=== PATIENT | male | born 1955 | race Caucasian/White ===

== ENCOUNTER 2020-01-17 08:20 | Inpatient (IN) | payer OTHER ==
[~2020-01-17] VITALS: Ht 177.8 cm; Wt 63.5 kg
[2020-01-17] VITALS (10 sets, daily range): BP systolic 103–155; BP diastolic 55–88
[2020-01-17 08:49] LABS: HEMATOCRIT 41.9 % (42.0-52.0); HEMOGLOBIN 13.6 gm/dL (14.0-18.0); MCH 27.4 pg (26.0-34.0); MCHC 32.5 g/dL (28.0-37.0); MCV 84.4 fL (80.0-100.0); PLATELET COUNT 396 thou/uL (150-400); RBC 4.97 mil/uL (4.50-6.00); RDW 12.6 % (10.5-14.5); WBC 23.9 thou/uL (4.0-11.0)
[2020-01-17 08:57] LABS: CALCIUM 8.6 mg/dL (8.5-10.1); CREATININE 1.2 mg/dL (0.7-1.3); POTASSIUM 4.2 mmol/L (3.5-5.1)
[2020-01-17 09:03] LABS: ALBUMIN 1.8 g/dL (3.4-5.0); TOTAL BILIRUBIN 0.3 mg/dL (<0.1-1.0); TOTAL PROTEIN 7.2 g/dL (6.4-8.2)
[2020-01-17 09:08] LABS: ABSOLUTE NEUTROPHILS 21.7 thou/uL (1.4-8.2)
[2020-01-17 09:09] LABS: PLATELET ESTIMATE NORMAL
[2020-01-17 09:21] LABS: URINE BILIRUBIN NEGATIVE (Negative); URINE BLOOD 1+ (Negative); URINE CLARITY CLEAR; URINE COLOR YELLOW; URINE GLUCOSE-RANDOM* 3+ (Negative); URINE KETONES TRACE (Negative); URINE LEUKOCYTES-REFLEX TRACE (Negative); URINE NITRITE-REFLEX NEGATIVE (Negative); URINE PROTEIN (DIPSTICK) NEGATIVE (Negative); URINE SPECIFIC GRAVITY <= 1.005 (1.005-1.035); URINE UROBILINOGEN 0.2 E.U./dl (0.2-1.0)
[2020-01-17 09:30] LABS: SQUAMOUS None Seen /LPF (0-3)
[2020-01-17 09:31] LABS: BACTERIA-REFLEX 1-9 Few /HPF (None Seen); CRYSTALS None Seen /LPF (None Seen); URINE RBC 3-10 Few /HPF (0-2)
[2020-01-17 09:32] LABS: CASTS None Seen /LPF (None Seen); WBC CLUMPS Few (None Seen)
[2020-01-17 09:59] LABS: BE(vivo) 1.8 mmol/L (-2 to +3); HCO3 27.1 mmol/L (22.0-26.0); PCO2 VENOUS 45.3 mmHg (41.0-51.0); PO2 VENOUS 20.4 mmHg (35.0-45.0)
[2020-01-17 12:11] LABS: MAGNESIUM 1.9 mg/dL (1.8-2.4); PHOSPHORUS 2.8 mg/dL (2.5-4.9)
--- NOTE | 2020-01-17 15:06 | NUR ---
PATIENT ARRIVED TO UNIT AT 1459. PATIENT TRANSFERRED TO ICU BED. PATIENT ON 10U OF INSULIN PER HOUR AND NS @ 200ML PER HOUR.,
[2020-01-17 17:12] LABS: ALBUMIN 1.6 g/dL (3.4-5.0); CALCIUM 8.3 mg/dL (8.5-10.1); PHOSPHORUS 2.5 mg/dL (2.5-4.9); POTASSIUM 3.3 mmol/L (3.5-5.1)
[2020-01-17 17:36] LABS: BE(vivo) 4.3 mmol/L (-2 to +3); HCO3 29.1 mmol/L (22.0-26.0); PCO2 44.4 mmHg (35.0-45.0); PO2 59.8 mmHg (80.0-100.0); pH 7.435 (7.360-7.450); sO2 91.6 % (92.0-98.0)
--- NOTE | 2020-01-17 18:55 | NUR ---
DR SAMAYOA WAS REQUESTING TRANSFER TO [facility] FOR UROLOGY COVERAGE. INFORMATION WAS SENT TO TRANSFER CENTER, THEY CALLED AND SAID THEY REFUSED PT TRANSFER. SPOKE WITH DR SAMAYOA, REQUEST SENT TO [facility] PER PHYSICIAN. [facility] CALLED, THEY SAID [facility] [place] REFUSED AND THAT [facility] HAS A VERY HIGH CENSUS AND THEY WOULD LIKE US TO REFER TO OTHER HOSPITALS BUT THEY WILL STILL CONSIDER PT. SPOKE WITH DR SAMAYOA, SHE IS OK WITH [facility], [facility] LONG UROLOGY COVERAGE IS AVAILABLE. REFERAL SENT TO [facility], AWAITING RESPONSE.
--- NOTE | 2020-01-17 19:20 | NUR ---
ASSESSMENTS AND INTERVENTIONS DOCCUMENTED. DR. MEDRANO ROUNDING ON PATIENT. FAMILY AT BEDSIDE. FAMILY UPDATED AND GIVEN ICU INFORMATION. PATIENT NEEDING TO TRANSFER TO HOSPITAL WITH UROLOGY. PATIENT BLADDER SCANNED AND RETAINING URINE DESPITE HAVING MULTIPLE URINE OUTPUT. PATIENT LETHARGIC AND TACHYPNEIC. BLOOD GLUCOSE CHECKED, PATIENT WAS 33. INSULIN GTT TURNED OFF AND DEXTROSE IV GIVEN. PATIENT RESPONSIVE AND BP WNL. PATIENT RRESTING BUT STILL DROWSY AT SHIFT CHANGE. ABX INITIATED AND ORDERS TO TRANSFER IN PLACE.
--- NOTE | 2020-01-17 21:14 | NUR ---
PT IS BEING TRANFERRED TO [facility] ICU ROOM 4065 D/T NOT HAVING UROLOGY SPECIALTY. TALKED TO TRANFER TEAM AND GAVE REPORT TO JERAD WHITE @2100. ARRANGING EMS TRANSFER AND PACKET AT THE MOMENT.
--- NOTE | 2020-01-17 21:42 | NUR ---
ATTEMPTED TO CALL HIS MOTHER NEXT OF KIN FOR UPDATE ON TRANSFER OF PT TO ANOTHER FACILITY BUT NO ANSWER. LEFT MESSAGE TO RETURN CALL.
--- NOTE | 2020-01-17 22:10 | NUR ---
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
--- NOTE | 2020-01-17 23:35 | H ---
[facility] [place] [address] HISTORY AND PHYSICAL Name: ALCIRA GUZMÁN Room #: 237-P [facility] IN M.R.#: [id number] Admission: 01/17/20 Attend Phys: Hallie Monte MD Discharge: 01/17/20 Date of : 59 Report #: [id number] THIS REPORT FOR: //name// CC: DINESH physician/PCP Hallie Monte DATE OF SERVICE: 01/17/2020 PRIMARY CARE PHYSICIAN: None. The patient has not seen a provider for last 4+ years. HISTORY OF PRESENT ILLNESS: The patient is a very pleasant, lean and thin, malnourished gentleman, 65 years old who appears older than his stated age. He informs me that for last 2 weeks, he has been having progressive weakness. He was diagnosed with diabetes 5 years ago here in this hospital; however, decided not to see a doctor and not to get insulin or any medications, so he has been completely off of medications and informs me that he smokes 1 pack per day and has done it for 16+ years. The patient informs me that besides weakness, he has also noticed left eye droopy and that has been going on for at least 2-3 years; however, he did not think that it was significant. Earlier, he had told the ER physician that this has been going on for several weeks, but to me he told me that it has been going on for 2-3 years. The patient denies any weakness or numbness of any part of the body, but just generalized weakness and he not be able to get up and walk around. He informs me that he has been basically bedbound for last 2 weeks and it got so bad that he finally decided to call the EMS and bring him over to the hospital. He denies any fever, shaking chills or night sweats. Denies any dysuria, hematuria, frequency or urgency of urination. The patient has had urgency and nocturia, but that has been going on for quite some time. The patient denies any associated nausea or vomiting or diarrhea. The patient does not have any cough or sputum production or chest pain or chest wall pain. The patient denies any fall or head injury in recent past. Denies any dizziness, lightheadedness, or syncopal episodes. PAST MEDICAL HISTORY: The patient was diagnosed 5 years ago; however, has been off of medications. The patient denied any other health problems that he is aware of. ALLERGIES: The patient has no known drug allergies. CURRENT MEDICATIONS: None. PAST SURGICAL HISTORY: The patient informs me that he has not had any surgery either. FAMILY HISTORY: Mother is alive and well and she is the emergency contact, her [facility] [address] [place] [address] HISTORY AND PHYSICAL Name: ALCIRA GUZMÁN Room #: 237-P [facility] IN M.R.#: [id number] Admission: 01/17/20 Attend Phys: Hallie Monte MD Discharge: 01/17/20 Date of : 59 Report #: [id number] name is Abena and the patient lives with her. Father and mother both smoked more than 1 pack per day and both had diabetes, high blood pressure, heart disease and stroke. The patient denies any family history of cancer. PERSONAL AND SOCIAL HISTORY: One pack per day tobacco and denies any alcohol use, denies any recreational drug use to me; however, to the ER physician, he had told that he has used methamphetamine in past. REVIEW OF SYSTEMS: Ten-point review of system was done and was positive for just generalized weakness all over the body and frequency and urgency of urination. 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 Left eye drooping was present for last 2-3 years as per the patient. We will call the mother and verify the history as well as the patient lives with his mother. The patient denies any pain. Review of systems for musculoskeletal is also negative. He absolutely denied any fever, shaking chills or night sweats at home, just generalized weakness and inability to get up and do his activities of daily living, progressively worsening for last 2 weeks was the main symptom, the patient came in with. PHYSICAL EXAMINATION: VITAL SIGNS: Temperature 38.2, heart rate 113, respirations 20, blood pressure 143/88, pulse oximetry 93% on room air when he presented to the ER this morning and at the time of examination, heart rate 109, temperature 38.2, respirations 21, blood pressure 155/77, pulse oximetry 95% on room air. GENERAL: Alert and oriented lean and thin, very pleasant, frail appearing older than his stated age, 65-year-old gentleman who looks significantly malnourished, but is in no acute cardiopulmonary distress. HEENT: Normocephalic, atraumatic. Pupils are equally round and reactive to light. Conjunctivae are clear. Extraocular muscle movements are intact. Oropharynx is clear. The patient has dry mucous membrane, but no thrush or lesions noted. NECK: Supple, no JVD, no lymphadenopathy noted. HEART: S1, S2, regular. No murmur, no S3, no S4. Tachycardia noted. LUNGS: Clear to auscultation bilaterally with decreased breath sounds bilaterally at the bases. ABDOMEN: Soft, nontender, nondistended, normal active bowel sounds. EXTREMITIES: The patient has no hepatosplenomegaly. NEUROLOGIC: Cranial nerves 2-12 are intact and the patient is able to move all 4 extremities against gravity, but against resistance is significantly weaker and weakness is symmetrical in all 4 extremities in flexors and extensors. Neurological exam is nonfocal. Gait and balance was not tested. LABORATORY DATA: The patient needs assistance with sitting up during the exam and is extremely debilitated. The patient had venous blood gas with a pH of 7.3, pCO2 of 45 and lactate 1.54 with a bicarbonate elevated at 27.1 on the blood gas. Serum chemistries indicate sodium 127, potassium 4.2, chloride 90, [facility] [address] [place] [address] HISTORY AND PHYSICAL Name: ALCIRA GUZMÁN Room #: 237-P [facility]#: [id number] Admission: 01/17/20 Attend Phys: Hallie Monte MD Discharge: 01/17/20 Date of : 59 Report #: [id number] bicarbonate 32, anion gap 5, BUN 26, creatinine 1.2, estimated GFR 61, glucose was 487. When he presented to the ER, the glucose was greater than 500. Liver function tests were within normal limits with AST 29, ALT 34, however, alkaline phosphatase is elevated at 222 and the patient is significantly low albumin level of 1.8, total protein is normal at 7.2. Lipase is 104. Beta hydroxybutyrate is elevated at 0.75. CBC is significant for WBC elevated at 23,900 with significant segment cells and bandemia noted as well with 3%, and hemoglobin is 13.6, hematocrit is 41.2, and platelet counts are 396. The patient had urinalysis done after he has received a liter of normal saline bolus. The 1+ blood, 3-10 rbc's, wbc clumps 16-25 noted and per high-power field and no squamous epithelial cells noted and 3+ random glucose noted and trace ketones present with a pH 6.5 and specific gravity 1.005. CT scan of abdomen and pelvis with contrast was done by ER provider for hyperglycemia written as an indication. The patient had mild patchy ground glass opacities in the inferior lobes, likely atelectasis and right pleural effusion noted. Coronary calcification noted in abdomen. The patient has mild fatty liver without any mass. Gallbladder, spleen, pancreas, adrenals are unremarkable. The patient has a complex renal cyst noted. No stone or obstructive uropathy noted. The left superior renal pole has some thickening and heterogeneous attenuation consistent with pyelonephritis. Distal esophagus and stomach are normal. Bowel is normal and no free air noted. Prostate is enlarged with multifocal areas of rim enhancing fluid within the prostate, manifestation of prostatitis or maybe early abscess formation noted. Multilocular fluid measures up to 4 cm, small amount of free fluid within the dependent left pelvis noted. No lytic lesion or blastic lesions noted. Multilevel degenerative changes to the spine noted. CT head without contrast was done for the left eye drooping and no acute intracranial process and cerebral atrophy and generalized noted. X-ray of the chest was reviewed and no acute cardiopulmonary process noted. ASSESSMENT AND PLAN: 1. SEPSIS WITH PROSTATE ABSCESS, URINARY RETENTION, BPH 2. HYPERGLYCEMIA AND ACETONES IN PATIENT WITH POORLY CONTROLLED TYPE 2 DM 3. PSEUDOHYPONATREMIA, DEHYDRATION 4. METHAMPHETAMINE USE 5, TOB DEPENDENCE 6. LACK OF MEDICAL CARE 7. LEFT EYE LID DROOPING INTERMITTENT X 2 YEARS 8. WEAKNESS GENERALIZED WITH IANBILITY TO DO ADLs X 2-3 WEEKS. 9. DNR 10 DVT PROPHYLAXIS; SCD 11. GI PROPHYLAXIS; PEPCID The patient is being admitted to the medical floor and CT findings were available after the patient's admission orders were written. The patient has a prostate abscess and he has sepsis with leukocytosis, bandemia and [facility] [address] [place] [address] HISTORY AND PHYSICAL Name: ALCIRA GUZMÁN Room #: 237-P [facility] IN [facility]#: [id number] Admission: 01/17/20 Attend Phys: Hallie Monte MD Discharge: 01/17/20 Date of : 59 Report #: [id number] fever. Lactic acid is pending on that admission labs. I would go ahead and start broad-spectrum antibiotics and will work with the warehouse order picker to transfer the patient with Urology services available. For DKA, insulin drip has been started where serum beta hydroxybutyrate level is elevated. The patient would be weaned off of insulin drip, but would be close monitoring of the glucose. Bicarbonate is normal and so it is compensated; however, the patient has multiple health issues underlying and he has not seen a provider for last 5 years. He definitely has pleural effusion, which needs workup along with coronary artery disease, calcified seen on the CT scan and so would order an echocardiogram as well and besides broad-spectrum antibiotics, IV fluids and insulin drip, follow the blood cultures and will get the patient to be seen in a facility where the Urology is available. Plan of care was discussed with Dr. Velasquez. <ELECTRONICALLY SIGNED> By: Hallie Monte MD 01/17/20 2335 [id number] Hallie Monte MD /nt
--- NOTE | 2020-01-18 04:57 | HC ---
[facility] [place] [address] CONSULTATION Name: ALCIRA GUZMÁN [place] Room #: 237-P [facility] IN ..#: [id number] Admission: 01/17/20 Attend Phys: Hallie Monte MD Discharge: 01/17/20 Date of : 59 Report #: [id number] THIS REPORT FOR: cc: DINESH - [place] family physician/PCP DINESH - [place] family physician/PCP Hu Hedrick MD ~ CC: [facility] physician/PCP Hallie Monte DATE OF SERVICE: 01/17/2020 INFECTIOUS DISEASE CONSULTATION ATTENDING PHYSICIAN: Dr. Monte. REASON FOR CONSULTATION: Prostate abscess complicated by systemic illness with sepsis. HISTORY OF PRESENT ILLNESS: Chart reviewed, patient examined. A 65-year-old gentleman with known history of diabetes mellitus, who apparently has not been well controlled per family. Over the course of last several days prior to admission, he had been feeling ill. This progressed significantly over the last 24-48 hours. It is not clear if that he had significant fevers or chills. He was progressively more encephalopathic. He did apparently have pain, initially was concerned about pyelonephritis given some low back pain and underwent imaging, which showed a complicated fluid collection consistent with a prostatic abscess. He was then started empirically on combination therapy with ceftriaxone and Flagyl. He was noted to have markedly elevated blood sugars, as a result was moved to the Intensive Care Unit and placed on insulin drip. Per family, they are not aware of any history of genitourinary tract type infections. ALLERGIES: None known. MEDICATIONS: Include famotidine, ceftriaxone, Flagyl, insulin drip. PAST MEDICAL HISTORY: History of diabetes mellitus. SOCIAL HISTORY: He is disabled, does smoke cigarettes. No ethanol. No illicit drug use. FAMILY HISTORY: Noncontributory. REVIEW OF SYSTEMS: Not reliably obtained. PHYSICAL EXAMINATION: [facility] [address] [place] [address] CONSULTATION Name: ALCIRA GUZMÁN Room #: 237-P [facility] [id number] Admission: 01/17/20 Attend Phys: Hallie Monte MD Discharge: 01/17/20 Date of : 59 Report #: [id number] GENERAL: He is difficult to arouse. It is clear he is quite uncomfortable, moderately encephalopathic. VITAL SIGNS: T-max 100.7 more recently, not 100.0, pulse 106, respirations 18, blood pressure 144/77. SKIN: Warm, dry, no rashes. HEENT: Normocephalic. Extraocular muscles intact. NECK: Supple. LUNGS: Diminished breath sounds. HEART: Regular, tachycardic. I do not appreciate a murmur. ABDOMEN: Soft. There are no overt peritoneal signs. GENITOURINARY AND RECTAL: Deferred. LABORATORY DATA: Lactic acid 1.8. CT abdomen and pelvis shows a multiloculated rim enhancing fluid within the prostate measuring 4 x 4 x 2.5 cm suggestive of prostatitis and abscess. Urinalysis, 16-25 white cells, few clumps, bacteria 1-9. Electrolytes: Sodium 127, potassium 4.2, chloride 90, bicarbonate is 32, anion gap of 5, BUN and creatinine 26 and 1.2, glucose of 47. Albumin of 1.8. Total protein of 7.2. Estimated GFR of 61. LFTs unremarkable. Chest x-ray, no acute cardiopulmonary process. ASSESSMENT: Prostate abscess. Adjust antimicrobial therapy. I think it is possibly a polymicrobial including gram positives. Noted effort to transfer without the availability of Urology to assist treatment at this point. Continue to monitor expectantly. Seemingly responded to the insulin drip and blood sugars are much improved. Does have a degree of encephalopathy. I think that could be attributed to her current situation. He has received some analgesics as well. Discussed with Dr. Monte. <ELECTRONICALLY SIGNED> By: Hu Hedrick MD 01/18/20 0457 [id number] Hu Hedrick MD /nt
== END 2020-01-17 22:12 | disposition short-term general hospital (02) | DRG 872 ==
LOC: ER 08:20 → EROBS 10:32 → 3W 11:28 → ICU 14:45
PROVIDERS: Emergency Medicine; ADMIT Internal Medicine
DX: A41.9 Sepsis, unspecified organism (principal); N41.2 Abscess of prostate; E87.1 Hypo-osmolality and hyponatremia; E11.65 Type 2 diabetes mellitus with hyperglycemia; N40.1 Benign prostatic hyperplasia with lower urinary tract symptoms; R33.8 Other retention of urine; Z66 Do not resuscitate; F17.210 Nicotine dependence, cigarettes, uncomplicated; Z83.3 Family history of diabetes mellitus; Z82.49 Family history of ischemic heart disease and other diseases of the circulatory system; Z81.1 Family history of alcohol abuse and dependence; Z79.899 Other long term (current) drug therapy
CPT/HCPCS: 10203